=== PATIENT | male | born 1930 | race African-American/Black ===

== ENCOUNTER 2016-09-11 18:34 | Emergency (ER) | payer OTHER ==
[~2016-09-11] VITALS: Ht 175.3 cm; Wt 99.8 kg
[~2016-09-11 18:34] MED LIST: ACETAMINOPHEN650 M5 PO; AFLURIA 2045 MCG/0.4; AMBIEN 5 MG TABL5 M1 PO; ASPIR 8181 MG PO; CENTRUM SILVER1 EAC2 PO; CEPACOL SORE THR3 MG PO; CIPROFLOXACIN500 M1 PO; COUMADIN 5 MG TA5 M1 PO; COUMADIN7.5 MG PO; FINASTERIDE5 MG PO; HYDROCODONE-AP1 EAC6 PO; INDOMETHACIN 5050 M1 PO; KLOR-CON 1010 MEQ PO; LASIX 20 MG TAB20 MG PO; LASIX 40 MG TAB40 M2 PO; LISINOPRIL20 MG PO; MEDROL4 MG PO; MEDROLDOSEPACK PO; NOHOMEMEDICATIONS; NORVASC 5 MG TAB5 MG PO; PNEUMOVAX25 MCG/0.5
[2016-09-11 19:12] LABS: ABSOLUTE NEUTROPHILS 2.7 thou/uL (1.4-8.2); BASOPHILS 0.9 % (0.0-2.0); EOSINOPHILS 3.4 % (0.0-3.0); HEMATOCRIT 34.5 % (42.0-52.0); HEMOGLOBIN 11.1 gm/dL (14.0-18.0); LYMPHOCYTES 28.2 % (24.0-44.0); MCHC 32.3 g/dL (28.0-37.0); MCV 83.5 fL (80.0-100.0); PLATELET COUNT 165 thou/uL (150-400); POLYS 59.5 % (36.0-66.0); RBC 4.13 mil/uL (4.50-6.00); RDW 15.2 % (10.5-14.5); WBC 4.6 thou/uL (4.0-11.0)
[2016-09-11 19:14] LABS: MANUAL DIFF NO
[2016-09-11 19:21] LABS: CALCIUM 8.9 mg/dL (8.5-10.1); CREATININE 2.3 mg/dL (0.7-1.3); POTASSIUM 4.6 mmol/L (3.5-5.1)
[2016-09-11 19:22] LABS: URINE BILIRUBIN NEGATIVE (Negative); URINE BLOOD 1+ (Negative); URINE COLOR YELLOW; URINE GLUCOSE-RANDOM* NEGATIVE (Negative); URINE KETONES NEGATIVE (Negative); URINE LEUKOCYTES-REFLEX NEGATIVE (Negative); URINE PROTEIN (DIPSTICK) NEGATIVE (Negative); URINE SPECIFIC GRAVITY 1.025 (1.003-1.035); URINE UROBILINOGEN 0.2 E.U./dl (0.2-1.0)
[2016-09-11 19:26] LABS: INR 2.7; PROTIME 27.8 Seconds (9.3-11.4)
[2016-09-11 19:31] LABS: CASTS None Seen /LPF (None Seen); CRYSTALS None Seen /LPF (None Seen); SQUAMOUS 0-3 Few /LPF (0-3); URINE RBC 0-2 Rare /HPF (0-2); URINE WBC-REFLEX None Seen /HPF (0-5)
== END 2016-09-11 20:45 | disposition home or self-care (01) ==
LOC: ER 18:34
PROVIDERS: Emergency Medicine
DX: R31.9 Hematuria, unspecified (principal); N40.0 Benign prostatic hyperplasia without lower urinary tract symptoms; I10 Essential (primary) hypertension; Z79.01 Long term (current) use of anticoagulants; Z98.890 Other specified postprocedural states